=== PATIENT | female | born 1955 | race Two or more races ===

== ENCOUNTER 2022-06-21 10:13 | Outpatient (REF) | payer MEDICARE, SELFPAY ==
[2022-06-21 14:28] LABS: C Reactive Protein 1.23 mg/dL (< or = 0.50)
[2022-06-21 15:00] LABS: Erythrocyte Sedimentation Rate 38 MM/HR (0-20)
== END 2022-06-21 10:14 | disposition home or self-care (01) ==
LOC: HO.10HDL 10:13
PROVIDERS: Visit Provider Nurse Practitioner Family
DX: M25.50 Pain in unspecified joint (principal); M79.7 Fibromyalgia; N18.9 Chronic kidney disease, unspecified
CPT/HCPCS: 36415; 85652; 86140; 99202

== ENCOUNTER 2022-09-26 09:56 | Outpatient (REF) | payer MEDICARE, SELFPAY ==
--- NOTE | ~2022-09-26 | XR_ITS ---
EXAMINATION: XR HAND, LEFT XR HAND, RIGHT CLINICAL INFORMATION: Bilateral hand pain COMPARISON: None TECHNIQUE: 3 views of each hand. FINDINGS: Left hand: No fracture or dislocation. Appropriate alignment. Joint spaces are maintained. Small osteophytes at the first interphalangeal joint. No osseous erosions. The soft tissues are unremarkable. Right hand: No fracture or dislocation. Mild narrowing at the first metacarpophalangeal joint. Small osteophytes at the first interphalangeal joint. No osseous erosions. The soft tissues are unremarkable. 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 No osseous erosions.
--- NOTE | ~2022-09-26 | XR_ITS ---
EXAMINATION: XR HAND, LEFT XR HAND, RIGHT CLINICAL INFORMATION: Bilateral hand pain COMPARISON: None TECHNIQUE: 3 views of each hand. FINDINGS: Left hand: No fracture or dislocation. Appropriate alignment. Joint spaces are maintained. Small osteophytes at the first interphalangeal joint. No osseous erosions. The soft tissues are unremarkable. Right hand: No fracture or dislocation. Mild narrowing at the first metacarpophalangeal joint. Small osteophytes at the first interphalangeal joint. No osseous erosions. The soft tissues are unremarkable. XR/XR hand RT min 3V IMPRESSION: Mild degenerative changes at the first interphalangeal joints bilaterally. No osseous erosions.
[2022-09-26 10:19] LABS: MANUAL DIFF FLAG NO
[2022-09-26 11:00] LABS: Basophils Percent Auto 0.4 % (0-2); Eosinophils Absolute Auto 0.1 X10*3/uL (0.0-0.4); Eosinophils Percent Auto 1.5 % (0-4); Hematocrit 36.5 % (37.0-47.0); Hemoglobin 12.1 g/dl (12.0-16.0); Imm Gran Abs Auto 0.03 X10*3/uL (0.00-0.03); Imm Gran Pct Auto 0.4 % (0.0-0.4); Lymphocytes Absolute Auto 1.8 X10*3/uL (1.2-4.9); Lymphocytes Percent Auto 20.5 % (20-40); Mean Corpuscular HGB Conc 33.2 g/dl (31.0-35.0); Mean Corpuscular Hemoglobin 28.9 pg (27.0-33.0); Mean Corpuscular Volume 87.3 fL (80.0-98.0); Mean Platelet Volume 9.1 fL (9.4-12.3); Monocytes Absolute Auto 0.4 X10*3/uL (0.1-1.2); Monocytes Percent Auto 5.1 % (2-11); Neutrophils Absolute Auto 6.2 x10*3/uL (2.0-8.3); Neutrophils Percent Auto 72.1 % (45-73); Platelet Count 271 X10*3/uL (160-400); Red Blood Count 4.18 X10*6/uL (4.20-5.50); Red Cell Distribution Width 12.2 % (11.0-16.0); White Blood Count 8.6 X10*3/uL (4.8-10.8)
[2022-09-26 11:09] LABS: Alanine Aminotransferase 14 U/L (0-31); Aspartate Amino Transferase 18 U/L (5-31); Blood Urea Nitrogen 42 mg/dL (9-16); C Reactive Protein 0.39 mg/dL (< or = 0.50); Estimated Glomerular Filt Rate 20
[2022-09-26 11:39] LABS: Erythrocyte Sedimentation Rate 31 MM/HR (0-20)
== END 2022-09-26 09:57 | disposition home or self-care (01) ==
LOC: HO.LAB 09:56
PROVIDERS: PCP Internal Medicine; Visit Provider Nurse Practitioner Family
DX: M79.7 Fibromyalgia (principal); M79.641 Pain in right hand; M79.642 Pain in left hand; I12.9 Hypertensive chronic kidney disease with stage 1 through stage 4 chronic kidney disease, or unspecified chronic kidney disease; N18.9 Chronic kidney disease, unspecified; Z79.899 Other long term (current) drug therapy
CPT/HCPCS: 36415; 73130; 82565; 84450; 84460; 84520; 85025; 85652; 86140; 99212

== ENCOUNTER → 2023-01-22 09:32 | Outpatient (BNVA) | payer MEDICARE, SELFPAY | PROVIDERS: PCP Internal Medicine; Visit Provider Nurse Practitioner Family | DX: M25.551 Pain in right hip (principal); M79.7 Fibromyalgia | CPT/HCPCS: 99212 ==

== ENCOUNTER 2023-05-08 09:00 | Outpatient (RCR) | payer MEDICARE, SELFPAY ==
--- NOTE | 2023-02-15 09:49 | MHC.PT.EP ---
[facility] [place] Office [place] Office [place] Office [address] [phone] F: [phone] F: [phone] F: [phone] F: [phone] Physical Therapy Plan of Care Date of Evaluation: Date of Surgery: R knee 2007 Diagnosis: Assessment: Patient is a 67 year old R handed female who presents with s/s consistent with R hip pain. She is retired but enjoys staying active with walking, in the community and around the house. Patient past medical history includes colostomy, L knee surgery, osteopenia, and back pain. Current impairments include pain, posture, ROM, strength, activity tolerance, balance, and functional mobility. Functional limitations include decreased ability to stand, walk, transfer, negotiate stairs, and exercise. Patient is motivated with good rehab potential. Skilled PT will address impairments and functional limitations in order to achieve goals. Frequency and Duration: The patient will be seen 2x/week for 5 weeks Short Term Goals: I with HEP - 2 weeks b/l ER 40 or better - 3 weeks hip flexion to 115 - 3 weeks [facility] Goals: Able to walk 30 minutes without increased pain - 5 weeks Strength 4/5 grossly - 5 weeks LEFS 48/80 - 5 weeks Treatment Plan: Modalities to reduce pain, spasms and effusion. Manual therapy to restore motion and function. Therapeutic exercise to improve strength and flexibility. Neuromuscular re-education for posture and balance. Therapeutic activities to return to functional activities of daily living. Electronically signed by: David Art, PT Please sign and return to therapist. Thank you for your referral.
--- NOTE | 2023-05-08 12:51 | MHC.PT.DC ---
[facility] [place] Office [place] Office [place] Office [address] [phone] F: [phone] F: [phone] F: [phone] F: [phone] Physical Therapy Discharge Report Diagnosis: Pain in R hip. Date of Surgery: R knee 2007 Date of Evaluation: 02/15/23 Date of Discharge: 05/08/23 Treatments to Date: 18 Cancellations to Date: No Shows to Date: Discharge Status: Improved Function Independent with HEP Discharge Summary: Willow has been an active and motivated participant in her therapy in and out of the clinic, she is I with her home program and is motivated to start a gym program. She has met some of her therapeutic goals though persists with hip pain limiting performing heavier HH chores, standing and walking for duration, squatting and lifting objects from the floor. Her LEFI outcome measure did improved from to 42 which is clinically significant. Electronically signed by: Syed Morales PT. Please sign and return to therapist. Thank you for your referral.
== END 2023-05-08 12:51 | disposition home or self-care (01) ==
LOC: HO.PTCHIC 09:00
PROVIDERS: PCP Internal Medicine; Visit Provider Nurse Practitioner Family
DX: M25.551 Pain in right hip (principal)
CPT/HCPCS: 97110; 97112; 97140; 97162